=== PATIENT | female | born 1960 | race Caucasian/White ===

== ENCOUNTER 2018-10-16 12:33 | Observation (INO) | payer BC ==
[2018-10-16 14:06] LABS: ABS Basophils 0.1 10^3/ul (0-0.2); ABS Eosinophils 0.3 10^3/ul (0-0.6); ABS Lymphocytes 1.5 10^3/ul (1.0-4.8); ABS Monocytes 0.4 10^3/ul (0-0.8); ABS Neutrophils 5.1 10^3/ul (1.5-7.7); ABS Nucleated RBC 0 10^3/ul; Eosinophil % 3.4 %; Hematocrit 45 % (33-41); Hemoglobin 14.6 g/dL (12.0-16.0); Mean Corpuscular HGB Conc 33 g/dL (31-36); Mean Corpuscular Hemoglobin 28 pg (27-31); Mean Corpuscular Volume 86 fL (80-97); Mean Platelet Volume 8.7 fL (7.4-10.4); Nucleated Red Blood Cells % 0.1; Platelet Count 280 10^3/uL (150-450); Red Blood Count 5.23 10^6 /uL (3.70-4.87); Red Cell Distribution Width 15 % (10.5-15); White Blood Count 7.3 10^3/uL (3.5-10.8)
[2018-10-16 14:17] LABS: Albumin 4.2 g/dL (3.2-5.2); Albumin/Globulin Ratio 1.5 (1-3); BUN/Creatinine Ratio 21.4 (8-20); EGFR African American 104.7 (>60); EGFR Non-African American 86.6 (>60); Globulin 2.8 g/dL (2-4); Potassium 3.8 mmol/L (3.5-5.0); Total Bilirubin 0.4 mg/dL (0.2-1.0)
[2018-10-16] MEDS ORDERED: Aspirin 81 mg CHEW TAB* 81 MG TAB.CHEW PO ONE (15:10)
[2018-10-16] MEDS ORDERED: Nitroglycerin TAB 0.4 MG* 0.4 MG TAB SL ONE (15:10)
--- NOTE | 2018-10-16 15:16 | ED ---
HPI Chest Pain - HPI Summary HPI Summary: The patient is a 58 y/o F presenting to [facility] with a chief complaint of mid- sternal CP that did not radiate to the arms or jaw starting at 10:00 this morning with lasting aching and discomfort now. Her chest pain, which is currently rated 3/10, is accompanied by nausea without vomiting, diffuse abd pain, decreased appetite, headache (rated 7/10), and chills. She also reports SOB that started yesterday after taking a longer walk than usual. She denies fever, erythema of eyes, sore throat, cough, diarrhea, dysuria, hematuria, myalgia, back or shoulder pain, edema, rash, or dizziness. Hx of HTN, depression , anxiety, and gastric bypass in 2009. No hx of blood clots in FHx. - History of Current Complaint Chief Complaint: EDChestPainROMI Time Seen by Provider: 10/16/18 14:59 Hx Obtained From: Patient Onset/Duration: Started Hours Ago, Still Present Time of Onset: 10:00 Timing: Lasting Hours Initial Severity: Moderate Current Severity: Mild Pain Intensity: 3 Pain Scale Used: 0-10 Numeric Chest Pain Location: Mid Sternal Chest Pain Radiates: No Character: Dull/Aching Aggravating Factor(s): Nothing Alleviating Factor(s): Nothing Associated Signs and Symptoms: Positive: Headaches, Shortness of Breath, Chills , Nausea, Abdominal Pain - diffuse, Other: - POSITIVE: decreased appetite; NEGATIVE: diarrhea. Negative: Fever, Cough, Back Pain, Vomiting, Edema - Allergy/Home Medications Allergies/Adverse Reactions: Allergies Allergy/AdvReac Type Severity Reaction Status Date / Time nortriptyline Allergy Severe Dizziness Verified 10/16/18 12:35 NSAIDS (Non-Steroidal Allergy See Comment Verified 10/16/18 12:35 Anti-Inflamma ARTIFICIAL SWEETENER Allergy MIGRAINE Uncoded 10/16/18 12:35 PMH/Surg Hx/FS Hx/Imm Hx Endocrine/Hematology History: Reports: Hx Thyroid Disease, Hx Anemia - s/p Consuelo- en-Y Denies: Hx Diabetes Cardiovascular History: Denies: Hx Hypertension, Hx Pacemaker/ICD Respiratory History: Reports: Hx Asthma, Hx Sleep Apnea - being fitted for CPAP 04/2018 GI History: Reports: Hx Gastroesophageal Reflux Disease History: Denies: Hx Renal Disease Musculoskeletal History: Reports: Hx Arthritis, Hx Back Problems Sensory History: Denies: Hx Hearing Aid Neurological History: Reports: Hx Headaches, Hx Migraine Psychiatric History: Denies: Hx Panic Disorder - Surgical History Surgery Procedure, Year, and Place: gastric bypass 2010. BROKEN ELBOW CHILD. TONSILS Infectious Disease History: No Infectious Disease History: Denies: Traveled Outside the [place] in Last 30 Days - Family History Known Family History: Negative: Hypertension, Diabetes - Social History Alcohol Use: None Alcohol Amount: 1 Hx Substance Use: No Substance Use Type: Reports: None Hx Tobacco Use: No Smoking Status (MU): Never Smoked Tobacco Review of Systems Positive: Chills. Negative: Fever Positive: Chest Pain - mid-sternal not radiating to jaw or arm Positive: Shortness Of Breath. Negative: Cough Positive: Abdominal Pain - diffuse, Nausea, Other - decreased appetite. Negative: Vomiting, Diarrhea Negative: dysuria, hematuria Positive: Other - NEGATIVE: back or shoulder pain. Negative: Myalgia, Edema Negative: Rash Neurological: Other - NEGATIVE: dizziness Positive: Headache All Other Systems Reviewed And Are Negative: Yes Physical Exam - Summary Physical Exam Summary: Constitutional: Well-developed, Well-nourished but morbidly obese, Alert. (-) Distressed Skin: Warm, Dry HENT: Normocephalic; Atraumatic Eyes: Conjunctiva normal Neck: Musculoskeletal ROM normal neck. (-) JVD, (-) Stridor, (-) Tracheal deviation Cardio: Rhythm regular, rate normal, Heart sounds normal; Intact distal pulses; The pedal pulses are 2+ and symmetric. Radial pulses are 2+ and symmetric. (-) Murmur Pulmonary/Chest wall: Effort normal. (-) Respiratory distress, (-) Wheezes, (-) Rales Abd: Soft, (-) tenderness, (-) Distension, (-) Guarding, (-) Rebound Musculoskeletal: (-) Edema Lymph: (-) Cervical adenopathy Neuro: Alert, Oriented x3 Psych: Mood and affect Normal Triage Information Reviewed: Yes Vital Signs On Initial Exam: Initial Vitals Temp Pulse Resp BP Pulse Ox 99 F 86 18 165/100 100 10/16/18 12:35 10/16/18 12:35 10/16/18 12:35 10/16/18 12:35 10/16/18 12:35 Vital Signs Reviewed: Yes Diagnostics - Vital Signs Vital Signs Temp Pulse Resp BP Pulse Ox 10/16/18 12:35 99 F 86 18 165/100 100 - Laboratory Lab Results: Lab Results 10/16/18 10/16/18 10/16/18 Range/Units 13:50 13:50 13:50 WBC 7.3 (3.5-10.8) 10^3/uL RBC 5.23 H (3.70-4.87) 10^6 /uL Hgb 14.6 (12.0-16.0) g/dL Hct 45 H (33-41) % MCV 86 (80-97) fL MCH 28 (27-31) pg MCHC 33 (31-36) g/dL RDW 15 (10.5-15) % Plt Count 280 (150-450) 10^3/uL MPV 8.7 (7.4-10.4) fL Neut % (Auto) 70.1 % Lymph % (Auto) 20.0 % Rich % (Auto) 5.8 % Eos % (Auto) 3.4 % Baso % (Auto) 0.7 % Absolute Neuts (auto) 5.1 (1.5-7.7) 10^3/ul Absolute Lymphs (auto) 1.5 (1.0-4.8) 10^3/ul Absolute Monos (auto) 0.4 (0-0.8) 10^3/ul Absolute Eos (auto) 0.3 (0-0.6) 10^3/ul Absolute Basos (auto) 0.1 (0-0.2) 10^3/ul Absolute Nucleated RBC 0 10^3/ul Nucleated RBC % 0.1 Sodium 139 (135-145) mmol/L Potassium 3.8 (3.5-5.0) mmol/L Chloride 105 (101-111) mmol/L Carbon Dioxide 26 (22-32) mmol/L Anion Gap 8 (2-11) mmol/L BUN 15 (6-24) mg/dL Creatinine 0.70 (0.51-0.95) mg/dL Est GFR ( Amer) 104.7 (>60) Est GFR (Non-Af Amer) 86.6 (>60) BUN/Creatinine Ratio 21.4 H (8-20) Glucose 91 (70-100) mg/dL Lactic Acid 1.2 (0.5-2.0) mmol/L Calcium 9.0 (8.6-10.3) mg/dL Total Bilirubin 0.40 (0.2-1.0) mg/dL AST 22 (13-39) U/L ALT 23 (7-52) U/L Alkaline Phosphatase 70 (34-104) U/L Troponin I 0.00 (<0.04) ng/mL Total Protein 7.0 (6.4-8.9) g/dL Albumin 4.2 (3.2-5.2) g/dL Globulin 2.8 (2-4) g/dL Albumin/Globulin Ratio 1.5 (1-3) Result Diagrams: 10/16/18 13:50 10/17/18 05:36 Lab Statement: Any lab studies that have been ordered have been reviewed, and results considered in the medical decision making process. - Radiology CXR Radiology Interpretation Completed By: Radiologist Summary of Radiographic Findings: Mild RIGHT basilar alveolar opacity new compared with the prior exam is concerning for mild inflammatory infiltrate. ED physician has reviewed this report. - EKG 12:46 Cardiac Rate: NL - 74 BPM EKG Rhythm: Sinus Rhythm Summary of EKG Findings: No STEMI. Re-Evaluation - Re-Evaluation First Eval Re-Evaluation Time: 17:30 Comment: I spoke with the patient concerning lab and imaging results. We also discussed admission. Chest Pain Course/Dx - Course Course Of Treatment: The patient is a 58 y/o F with a chief complaint of mid- sternal CP that did not radiate to the arms or jaw starting at 10:00 this morning with lasting aching and discomfort now. She additionally c/o nausea without vomiting, diffuse abd pain, decreased appetite, headache, and chills. She also reports SOB with exertion. She denies fever, diarrhea, back or shoulder pain, edema, or dizziness. Hx of HTN, depression, anxiety, and gastric bypass in 2009. No hx of blood clots in FHx. Upon physical exam, the patient is morbidly obese but exam is otherwise normal. In the ED course, the patient was administered Azithromycin, NTG, Aspirin, and Ceftriaxone Sodium in Ns. Blood work reveals elevated RBC, Hct, and BUN/Creatinine ratio. First troponin is 0.0 , second troponin is 0.01. EKG is normal. CXR reveals new mild right basilar alveolar opacity. I spoke with Dr. Whatley, hospitalist, at 17:10 concerning the patient's symptoms and results thus far; he accepts the patient for admission. The patient is diagnosed with chest pain unspecified. She agrees with plan and understands the need for admission at this time. - Diagnoses Provider Diagnoses: Chest pain, unspecified - Provider Notifications Discussed Care Of Patient With: Lincoln Whatley - hospitalist Time Discussed With Above Provider: 17:10 Instructed by Provider To: Other - I consulted with Dr. Whatley who accepts the patient for admission at this time based on lab and imaging results. Discharge - Sign-Out/Discharge Documenting (check all that apply): Patient Departure - Patient will be admitted to [facility] for further care. Patient Received Moderate/Deep Sedation with Procedure: No - Discharge Plan Condition: Stable Disposition: ADMITTED TO [facility] - Billing Disposition and Condition Condition: STABLE Disposition: Admitted to [facility] - Attestation Statements Document Initiated by Emekae: Yes Documenting Scribe: Angelia Melgar Provider For Whom Mable is Documenting (Include Credential): Dr. Raymon Morton MD Scribe Attestation: IAngelia scribed for Dr. Raymon Morton MD on 10/17/18 at 1059. Scribe Documentation Reviewed: Yes Provider Attestation: The documentation as recorded by the Angelia moraes accurately reflects the service I personally performed and the decisions made by me, Dr. Raymon Morton MD Status of Scribe Document: Viewed
[2018-10-16] MEDS ORDERED: ED Azithromycn 500 mg/250 ml 500 MG/250 ML PREMIX.SET IVPB ONE (16:23)
[2018-10-16] MEDS ORDERED: cefTRIAXone(*) 1 GM in NS 0.9% 50 ML* 50 ML IVPB ONE (16:23)
[2018-10-16] MEDS ORDERED: Al Hydrox/Mg Hydrox/Simet LIQ* 30 ML UDC PO PRN (18:46)
[2018-10-16] MEDS ORDERED: NS 0.9% 1000 ML** 1,000 ML IV SCH (19:00)
[2018-10-16] MEDS ORDERED: Melatonin 3 MG TAB PO PRN (19:08)
[2018-10-16 19:48] LABS: TSH (Thyroid Stimulating Horm) 1.3 mcIU/mL (0.34-5.60)
[2018-10-16] MEDS: Heparin VIAL(*) 5000 UNITS/ML VIAL (FIVE THOUSAND) SUBCUT SCH (21:19)
[2018-10-16] MEDS: Acetaminophen TAB* 325 MG PO PRN (21:19)
--- NOTE | 2018-10-16 21:46 | HP ---
Amended report to enter cosigning physician. CC: Dr. Tonia Frankel* HISTORY AND PHYSICAL: DATE OF ADMISSION: 10/16/18 PROVIDER: Lisa Casas NP. ATTENDING PHYSICIAN: Dr. Marc Preston* (dictated by Lisa Casas NP). PRIMARY CARE PROVIDER: Tonia Frankel MD. CHIEF COMPLAINT: Chest pain. HISTORY OF PRESENT ILLNESS: Ms. Meade is a 58-year-old female with a past medical history significant for GERD, migraine, sleep apnea, hypothyroid, social anxiety, depression, and obesity who presented to the emergency room with complaint of midsternal chest pain. Denied any radiation to the back, neck , jaw, or shoulders. Reports that it was associated with nausea. The patient reports she was unable to get comfortable due to the pain. The patient also reports that yesterday she took her dogs for a walk farther than she normally walks them and became very short of breath and fatigued after the walk. The patient reports no exacerbation of the chest pain with deep breath, movement, or palpation. She denies any fever, chills, unintended weight loss. Denies any cough, hemoptysis, or shortness of breath. She does report nausea. Denies any diarrhea, abdominal pain, gross hematuria, dysuria, focal weakness, or sensory loss. Denies any dysphagia. She does have chronic joint and muscle aches. Denies any rashes, lesions, open sores. She does report she is slightly anxious. While in the emergency room, the patient had routine lab work drawn. Her troponins have been negative in the emergency room. She was given aspirin 324 mg p.o. Due to her chest pain, we were asked to see and evaluate her for admission. She will be admitted under observation for chest pain, rule out acute coronary syndrome. PAST MEDICAL HISTORY: 1. GERD. 2. Migraines. 3. Sleep apnea. 4. Hypothyroid. 5. Social anxiety. 6. Depression. 7. Obesity. PAST SURGICAL HISTORY: 1. Consuelo-en-Y gastric bypass. 2. Tonsillectomy. 3. Elbow surgery. 4. Hernia repair, umbilical. HOME MEDICATIONS: 1. Tizanidine 4 mg as needed. 2. Rizatriptan 5 mg p.o. once as needed for migraine. 3. Magnesium oxide 1000 mg p.o. daily. 4. Prevacid 30 mg p.o. daily. 5. Ferrous sulfate 325 mg p.o. daily. 6. Vitamin D 5000 units p.o. daily. 7. Calcium 500 mg p.o. daily. 8. Acetaminophen 1000 mg p.o. q.6 hours as needed for pain. ALLERGIES: To NORTRIPTYLINE, NSAIDs is a sensitivity due to her gastric bypass , and artificial sweeteners causes migraines. FAMILY HISTORY: Father with a history of hypertension, alive in his 80s. Mother with a history of diabetes, alive in her 80s. Grandmother with a history of uterine cancer. SOCIAL HISTORY: No tobacco. Occasional alcohol use. Denies any illicit drug use. She is and she lives with her . Surrogate decision maker in the event she is unable to make her own decisions is her . She is a full code. REVIEW OF SYSTEMS: All pertinent positives were mentioned in the HPI. All others were negative. A review of 14 systems was completed. PHYSICAL EXAMINATION GENERAL: At this time, Ms. Meade is a 58-year-old female. She is resting on the stretcher in the emergency room with sunglasses on due to current migraine. She is alert and oriented x3. She does not appear to be in any acute distress. HEENT: Head is atraumatic, normocephalic. Eyes: EOMs are intact. Sclerae anicteric and not pale. Oral mucosa appear to be moist. NECK: Supple. LUNGS: Clear to auscultation bilaterally. No wheezes, rales, or rhonchi. CARDIAC: S1, S2. Regular rate and rhythm. No murmurs, rubs, or gallops. ABDOMEN: Obese, soft, nontender. Bowel sounds are present x4. MUSCULOSKELETAL: She is able to move all extremities with 5/5 strength. There is no clubbing or cyanosis. NEUROLOGIC: She is awake, alert, oriented x3. Speech is clear. Thought process is intact. There are no gross focal deficits. PSYCH: She is tearful during conversation. Reports that she has attempted to control her anxiety. SKIN: Intact. There are no rashes or open sores. LABORATORY DATA AND DIAGNOSTIC STUDIES: WBCs are 7.3, RBCs 5.23, hemoglobin 14.6, hematocrit was 45, platelet count was 280. Sodium 139, potassium 3.8, chloride 105, carbon dioxide was 26, anion gap was 8, BUN was 15, creatinine 0.70, glucose was 91, lactic acid 1.2, calcium 9.0. ASTs were 22, ALTs were 23 , alkaline phosphatase was 70. Troponin was 0.00 and 0.01. She had a chest x-ray, which showed mild right basilar alveolar opacity, new when compared to a prior exam, concerning for mild inflammatory infiltrate. She had electrocardiogram, which showed sinus rhythm at a rate of [address] No [address]- or T-wave changes. ASSESSMENT AND PLAN: Ms. Meade is a 58-year-old female with a past medical history significant for gastroesophageal reflux disease, migraine, sleep apnea, hypothyroid, social anxiety, depression, and obesity who presented to the emergency room with complaint of midsternal chest pressure with associated nausea. Due to this, we were asked to evaluate her for admission. She will be admitted under observation for: 1. Chest pain. We will continue to trend her troponins x3. We will do a nuclear stress test, exercise, tomorrow. She will be monitored on telemetry overnight and we will get a lipid profile in the a.m. The patient does have a BROOK score of 1. The patient did receive 324 of aspirin in the emergency room. I will continue her on aspirin 81 mg p.o. daily. A chest x-ray is concerning for basilar opacity. The patient does not have any shortness of breath, cough, congestion, or coughing up any sputum. At this time, I will hold off on further treatment for possible pneumonia as the patient is afebrile as well and maintaining O2 saturations on room air of 95% to 98% and no clinical symptoms concerning for pneumonia at this time. 2. Gastroesophageal reflux disease. We will continue on Prevacid as previously prescribed. 3. Migraines. I am going to hold rizatriptan as the patient did have chest pain. I will continue with Tylenol Extra Strength and ice packs to assist in comfort with her headaches. She also can continue her magnesium oxide daily to help control her headaches. 4. Sleep apnea. The patient does wear CPAP at night. We will order hospital CPAPs for her. 5. Depression and social anxiety. The patient is not currently treated with any medication. States that she was recently taken off her phentermine, which she reports helped control her social anxiety. 6. FEN. The patient can have a heart-healthy, no-caffeine diet. 7. Code status. She is a full code. 8. DVT prophylaxis. I will place her on heparin subcu. 9. Disposition. The patient will be placed on [address] [place] [address] telemetry as observation. TIME SPENT: Time spent on this admission was 60 minutes, greater than half the time was spent at the bedtime reviewing events leading thus far to her hospitalization, performing my physical exam, and implementing my plan of care. I have discussed this with my attending, Dr. Raghavendra Preston; he is in agreement with my plan. LISA CASAS, NURSING INFORMATICS CLINICAL ANALYST [id number]/[facility] #: [id number] ABY
[2018-10-16] MEDS ORDERED: NS 0.9% 1000 ML/HR X 1 BAG (TOTAL 1000 ML) IV ONE (23:45)
[2018-10-17] MEDS: Heparin VIAL(*) 5000 UNITS/ML VIAL (FIVE THOUSAND) SUBCUT SCH ×3 (05:36→20:51)
[2018-10-17 06:28] LABS: BUN/Creatinine Ratio 14.8 (8-20); Calcium 8.2 mg/dL (8.6-10.3); EGFR African American 122.8 (>60); EGFR Non-African American 101.5 (>60); HDL Cholesterol 58.1 mg/dL; Potassium 3.8 mmol/L (3.5-5.0)
[2018-10-17] MEDS: Magnesium Oxide TAB* 400 MG PO SCH (08:55)
[2018-10-17] MEDS: Aspirin EC TAB* 81 MG TAB.EC PO SCH (08:56)
[2018-10-17] MEDS: Cholecalciferol TAB* 1000 UNITS PO SCH (08:56)
[2018-10-17] MEDS: Ferrous Sulfate TAB* 325 MG PO SCH (08:56)
[2018-10-17] MEDS: Acetaminophen TAB* 325 MG PO PRN (08:56)
[2018-10-17] MEDS: Pantoprazole TAB * 40 MG TAB PO SCH (08:57)
--- NOTE | 2018-10-17 09:42 | PN ---
Subjective Date of Service: 10/17/18 Interval History: Patient describes mild chest pain overnight, no changes on telemetry. Patient has history of chronic migraines and currently has migraine. Denies visual changes/nausea. Denies chest pain at time of visit, SOB, cough, fever/chills. Objective Active Medications: Acetaminophen (Tylenol Tab*) 975 mg PO Q8H PRN PRN Reason: FEVER/PAIN Last Admin: 10/17/18 08:56 Dose: 975 mg Al Hydrox/Mg Hydrox/Simethicone (Maalox Plus*) 30 ml PO Q6H PRN PRN Reason: INDIGESTION Aspirin (Aspirin Ec Tab*) 81 mg PO DAILY [facility] Last Admin: 10/17/18 08:56 Dose: 81 mg Cholecalciferol (Vitamin D Tab*) 5,000 units PO DAILY [facility] Last Admin: 10/17/18 08:56 Dose: 5,000 units Ferrous Sulfate (Ferrous Sulfate Tab*) 325 mg PO DAILY [facility] Last Admin: 10/17/18 08:56 Dose: 325 mg Heparin Sodium (Porcine) (Heparin Vial(*)) 5,000 units SUBCUT Q8HR [facility] Last Admin: 10/17/18 05:36 Dose: 5,000 units Magnesium Oxide (Magox 400 Tab*) 1,000 mg PO DAILY [facility] Last Admin: 10/17/18 08:55 Dose: 1,000 mg Melatonin (Melatonin) 3 mg PO BEDTIME PRN PRN Reason: SLEEP Last Admin: 10/16/18 21:19 Dose: 3 mg Pantoprazole Sodium (Protonix Tab*) 40 mg PO DAILY [facility] Last Admin: 10/17/18 08:57 Dose: 40 mg Vital Signs - 8 hr 10/17/18 10/17/18 10/17/18 03:15 07:39 07:45 Temperature 97.6 F 96.5 F Pulse Rate 91 59 Respiratory 16 16 20 Rate Blood Pressure 140/86 145/76 (mmHg) O2 Sat by Pulse 100 96 Oximetry Oxygen Devices in Use Now: None Appearance: Patient laying in hospital bed with ice pack to head, appearing in NAD; at bedside Eyes: No Scleral Icterus, PERRLA Ears/Nose/Mouth/Throat: Mucous Membranes Moist Neck: NL Appearance and Movements; NL JVP, Trachea Midline Respiratory: Symmetrical Chest Expansion and Respiratory Effort, Clear to Auscultation Cardiovascular: NL Sounds; No Murmurs; No JVD, RRR Abdominal: - - abdomen obese, soft, nontender, nondistended Extremities: - - pretibial +1 pitting edema bilaterally; no clubbing; neg calf tenderness Skin: No Rash or Ulcers, - - skin is warm, dry, intact Neurological: Alert and Oriented x 3, NL Muscle Strength and Tone Result Diagrams: 10/16/18 13:50 10/17/18 05:36 Additional Lab and Data: Lab Results 10/16/18 10/16/18 10/16/18 Range/Units 13:50 13:50 13:50 WBC 7.3 (3.5-10.8) 10^3/uL RBC 5.23 H (3.70-4.87) 10^6 /uL Hgb 14.6 (12.0-16.0) g/dL Hct 45 H (33-41) % MCV 86 (80-97) fL MCH 28 (27-31) pg MCHC 33 (31-36) g/dL RDW 15 (10.5-15) % Plt Count 280 (150-450) 10^3/uL MPV 8.7 (7.4-10.4) fL Neut % (Auto) 70.1 % Lymph % (Auto) 20.0 % Beckham % (Auto) 5.8 % Eos % (Auto) 3.4 % Baso % (Auto) 0.7 % Absolute Neuts (auto) 5.1 (1.5-7.7) 10^3/ul Absolute Lymphs (auto) 1.5 (1.0-4.8) 10^3/ul Absolute Monos (auto) 0.4 (0-0.8) 10^3/ul Absolute Eos (auto) 0.3 (0-0.6) 10^3/ul Absolute Basos (auto) 0.1 (0-0.2) 10^3/ul Absolute Nucleated RBC 0 10^3/ul Nucleated RBC % 0.1 Sodium 139 (135-145) mmol/L Potassium 3.8 (3.5-5.0) mmol/L Chloride 105 (101-111) mmol/L Carbon Dioxide 26 (22-32) mmol/L Anion Gap 8 (2-11) mmol/L BUN 15 (6-24) mg/dL Creatinine 0.70 (0.51-0.95) mg/dL Est GFR ( Amer) 104.7 (>60) Est GFR (Non-Af Amer) 86.6 (>60) BUN/Creatinine Ratio 21.4 H (8-20) Glucose 91 (70-100) mg/dL Lactic Acid 1.2 (0.5-2.0) mmol/L Calcium 9.0 (8.6-10.3) mg/dL Total Bilirubin 0.40 (0.2-1.0) mg/dL AST 22 (13-39) U/L ALT 23 (7-52) U/L Alkaline Phosphatase 70 (34-104) U/L Troponin I 0.00 (<0.04) ng/mL Total Protein 7.0 (6.4-8.9) g/dL Albumin 4.2 (3.2-5.2) g/dL Globulin 2.8 (2-4) g/dL Albumin/Globulin Ratio 1.5 (1-3) Assess/Plan/Problems-Billing Assessment: - Patient Problems (1) Chest pain Code(s): R07.9 - CHEST PAIN, UNSPECIFIED SNOMED Code(s): 85044200 Comment: -pt asymptomatic at time of visit but did have additional episode of chest pain earlier this morning -telemetry without changes; troponins neg x 3 -awaiting stress test today -LDL/HDL/cholesterol wnl, triglycerides elevated to 172, ASCVD calculated - 2.4 % risk of CV event in 10 years, no statin needed at this time (2) Abnormal chest x-ray Code(s): R93.89 - ABNORMAL FINDINGS ON DX IMAGING OF OTH BODY STRUCTURES SNOMED Code(s): 028654170 Comment: -CXR on admission with mild right basilar alveolar opacity -patient has not had tachycardia, tachypnea, or fever since admission; O2 sats wnl -pt denies diffuculty breathing, cough, fever/chills -lung exam has good air flow and no wheezes/rhales/rhonchi -pt received single dose of ceftriaxone and azithromycin in ED, no clinical suspicion of pneumonia at this time so will not continue -follow up after discharge will be recommended (3) Migraine Code(s): G43.909 - MIGRAINE, UNSP, NOT INTRACTABLE, WITHOUT STATUS MIGRAINOSUS SNOMED Code(s): 36756024 Comment: -patient has daily, chronic migraines -holdling home rizatriptan in setting of chest pain, continuing home mag oxide (4) GERD (gastroesophageal reflux disease) Code(s): K21.9 - GASTRO-ESOPHAGEAL REFLUX DISEASE WITHOUT ESOPHAGITIS SNOMED Code(s): 945120424 Comment: -continue home prevacid -consider as possible cause for chest pain if stress test wnl (5) LINDA (obstructive sleep apnea) Code(s): G47.33 - OBSTRUCTIVE SLEEP APNEA (ADULT) (PEDIATRIC) SNOMED Code(s): 69526449 Comment: -uses CPAP at night at home, continue (6) Full code status Code(s): Z78.9 - OTHER SPECIFIED HEALTH STATUS SNOMED Code(s): 171227262 (7) DVT prophylaxis Code(s): XEK7325 - SNOMED Code(s): 818166756 Comment: -continue subQ heparin TID
[2018-10-17] MEDS ORDERED: PROCHLORPERAZINE INJ 5 MG/ML 2 ML VIAL IV PRN (17:12)
[2018-10-17] MEDS ORDERED: diPHENhydraMINE PO* 50 MG PO PRN (17:13)
[2018-10-17] MEDS ORDERED: Prochlorperazine TAB* 10 MG PO PRN (17:15)
[2018-10-18] MEDS: Heparin VIAL(*) 5000 UNITS/ML VIAL (FIVE THOUSAND) SUBCUT SCH ×2 (05:58→12:58)
[2018-10-18 06:21] LABS: ABS Basophils 0 10^3/ul (0-0.2); ABS Eosinophils 0.3 10^3/ul (0-0.6); ABS Monocytes 0.6 10^3/ul (0-0.8); ABS Neutrophils 3.5 10^3/ul (1.5-7.7); ABS Nucleated RBC 0 10^3/ul; Eosinophil % 4.4 %; Hematocrit 42 % (33-41); Hemoglobin 13.8 g/dL (12.0-16.0); Lymphocyte % 31.3 %; Mean Corpuscular HGB Conc 33 g/dL (31-36); Mean Corpuscular Hemoglobin 28 pg (27-31); Mean Corpuscular Volume 85 fL (80-97); Mean Platelet Volume 8.9 fL (7.4-10.4); Nucleated Red Blood Cells % 0.1; Platelet Count 230 10^3/uL (150-450); Red Blood Count 4.94 10^6 /uL (3.70-4.87); Red Cell Distribution Width 15 % (10.5-15); White Blood Count 6.4 10^3/uL (3.5-10.8)
[2018-10-18 06:34] LABS: BUN/Creatinine Ratio 15.5 (8-20); Calcium 8.7 mg/dL (8.6-10.3); EGFR Non-African American 85.2 (>60); Potassium 3.7 mmol/L (3.5-5.0)
[2018-10-18] MEDS ORDERED: hydrALAZINE IV* 20 MG/ML VIAL IV SLOW PU PRN (07:12)
[2018-10-18] MEDS: Cholecalciferol TAB* 1000 UNITS PO SCH (08:36)
[2018-10-18] MEDS: Magnesium Oxide TAB* 400 MG PO SCH (08:36)
[2018-10-18] MEDS: Ferrous Sulfate TAB* 325 MG PO SCH (08:37)
[2018-10-18] MEDS: Aspirin EC TAB* 81 MG TAB.EC PO SCH (08:37)
[2018-10-18] MEDS: Pantoprazole TAB * 40 MG TAB PO SCH (08:37)
--- NOTE | 2018-10-18 09:16 | PN ---
Subjective Date of Service: 10/18/18 Interval History: Patient is seen today after completion of resting nuclear medicine test. She mentions that about 30 min after nuclear medicine staff injected medication, she began feeling "chest heaviness." It has not resolved at time of visit and she has associated nausea. Her chronic, daily migraine is improved this morning. She otherwise denies SOB, palpitations, cough, fever/chills, abd pain, vomiting. Objective Active Medications: Acetaminophen (Tylenol Tab*) 975 mg PO Q8H PRN PRN Reason: FEVER/PAIN Last Admin: 10/17/18 08:56 Dose: 975 mg Al Hydrox/Mg Hydrox/Simethicone (Maalox Plus*) 30 ml PO Q6H PRN PRN Reason: INDIGESTION Aspirin (Aspirin Ec Tab*) 81 mg PO DAILY [facility] Last Admin: 10/18/18 08:37 Dose: 81 mg Cholecalciferol (Vitamin D Tab*) 5,000 units PO DAILY [facility] Last Admin: 10/18/18 08:36 Dose: 5,000 units Diphenhydramine HCl (Benadryl Po*) 50 mg PO Q6H PRN PRN Reason: Migraine Ferrous Sulfate (Ferrous Sulfate Tab*) 325 mg PO DAILY [facility] Last Admin: 10/18/18 08:37 Dose: 325 mg Heparin Sodium (Porcine) (Heparin Vial(*)) 5,000 units SUBCUT Q8HR [facility] Last Admin: 10/18/18 05:58 Dose: 5,000 units Hydralazine HCl (Apresoline Iv*) 5 mg IV SLOW PU Q6H PRN PRN Reason: SYSTOLIC BP GREATER THAN: Magnesium Oxide (Magox 400 Tab*) 1,000 mg PO DAILY [facility] Last Admin: 10/18/18 08:36 Dose: 1,000 mg Melatonin (Melatonin) 3 mg PO BEDTIME PRN PRN Reason: SLEEP Last Admin: 10/16/18 21:19 Dose: 3 mg Pantoprazole Sodium (Protonix Tab*) 40 mg PO DAILY [facility] Last Admin: 10/18/18 08:37 Dose: 40 mg Prochlorperazine (Compazine Tab*) 10 mg PO Q6HR PRN PRN Reason: MIGRAINE HEADACHE Last Admin: 10/18/18 08:51 Dose: 10 mg Vital Signs - 8 hr 10/18/18 10/18/18 03:57 07:58 Temperature 97.9 F 97.6 F Pulse Rate 61 66 Respiratory 14 20 Rate Blood Pressure 143/77 149/89 (mmHg) O2 Sat by Pulse 100 99 Oximetry Oxygen Devices in Use Now: Nasal Cannula Appearance: Obese female sitting upright in hospital bed comfortably, appearing in NAD Eyes: No Scleral Icterus, PERRLA Ears/Nose/Mouth/Throat: Mucous Membranes Moist Neck: NL Appearance and Movements; NL JVP Respiratory: Symmetrical Chest Expansion and Respiratory Effort, Clear to Auscultation Cardiovascular: NL Sounds; No Murmurs; No JVD, RRR Abdominal: - - abdomen obese, soft, nontender, nondistended Extremities: No Edema, No Clubbing, Cyanosis Skin: No Rash or Ulcers, - - skin is warm, dry, intact Neurological: Alert and Oriented x 3, NL Muscle Strength and Tone Result Diagrams: 10/18/18 05:59 10/18/18 05:59 Additional Lab and Data: Lab Results 10/16/18 10/16/18 10/16/18 Range/Units 13:50 13:50 13:50 WBC 7.3 (3.5-10.8) 10^3/uL RBC 5.23 H (3.70-4.87) 10^6 /uL Hgb 14.6 (12.0-16.0) g/dL Hct 45 H (33-41) % MCV 86 (80-97) fL MCH 28 (27-31) pg MCHC 33 (31-36) g/dL RDW 15 (10.5-15) % Plt Count 280 (150-450) 10^3/uL MPV 8.7 (7.4-10.4) fL Neut % (Auto) 70.1 % Lymph % (Auto) 20.0 % Divide % (Auto) 5.8 % Eos % (Auto) 3.4 % Baso % (Auto) 0.7 % Absolute Neuts (auto) 5.1 (1.5-7.7) 10^3/ul Absolute Lymphs (auto) 1.5 (1.0-4.8) 10^3/ul Absolute Monos (auto) 0.4 (0-0.8) 10^3/ul Absolute Eos (auto) 0.3 (0-0.6) 10^3/ul Absolute Basos (auto) 0.1 (0-0.2) 10^3/ul Absolute Nucleated RBC 0 10^3/ul Nucleated RBC % 0.1 Sodium 139 (135-145) mmol/L Potassium 3.8 (3.5-5.0) mmol/L Chloride 105 (101-111) mmol/L Carbon Dioxide 26 (22-32) mmol/L Anion Gap 8 (2-11) mmol/L BUN 15 (6-24) mg/dL Creatinine 0.70 (0.51-0.95) mg/dL Est GFR ( Amer) 104.7 (>60) Est GFR (Non-Af Amer) 86.6 (>60) BUN/Creatinine Ratio 21.4 H (8-20) Glucose 91 (70-100) mg/dL Lactic Acid 1.2 (0.5-2.0) mmol/L Calcium 9.0 (8.6-10.3) mg/dL Total Bilirubin 0.40 (0.2-1.0) mg/dL AST 22 (13-39) U/L ALT 23 (7-52) U/L Alkaline Phosphatase 70 (34-104) U/L Troponin I 0.00 (<0.04) ng/mL Total Protein 7.0 (6.4-8.9) g/dL Albumin 4.2 (3.2-5.2) g/dL Globulin 2.8 (2-4) g/dL Albumin/Globulin Ratio 1.5 (1-3) Assess/Plan/Problems-Billing Assessment: 58 yo female with PMHx obesity, GERD, migraines, hypothyroidism, anxiety/ depression presents to the ED with chest pain. - Patient Problems (1) Chest pain Code(s): R07.9 - CHEST PAIN, UNSPECIFIED SNOMED Code(s): 41887166 Comment: -pt with chest discomfort at time of visit, no diaphoresis, SOB, radiation of pain, no changes on telemetry -resting component of stress test completed today, awaiting results -troponins neg x 3 -LDL/HDL/cholesterol wnl, triglycerides elevated to 172, ASCVD calculated - 2.4 % risk of CV event in 10 years, no statin needed at this time (2) Hypertension Status: Acute Code(s): I10 - ESSENTIAL (PRIMARY) HYPERTENSION SNOMED Code(s) : 94893122 Comment: -SBP has been >140 on average -prn hydralazine for SBP>150 ordered -patient does not have PMHx of hypertension -advise f/u with PCP at discharge (3) Abnormal chest x-ray Code(s): R93.89 - ABNORMAL FINDINGS ON DX IMAGING OF OTH BODY STRUCTURES SNOMED Code(s): 299890211 Comment: -pt continues to be asymptomatic and with benign lung exam -CXR on admission with mild right basilar alveolar opacity -follow up after discharge will be recommended (4) Migraine Code(s): G43.909 - MIGRAINE, UNSP, NOT INTRACTABLE, WITHOUT STATUS MIGRAINOSUS SNOMED Code(s): 90561490 Comment: -patient has daily, chronic migraines -holdling home rizatriptan in setting of chest pain, continuing home mag oxide -prn compazine added (5) GERD (gastroesophageal reflux disease) Code(s): K21.9 - GASTRO-ESOPHAGEAL REFLUX DISEASE WITHOUT ESOPHAGITIS SNOMED Code(s): 002611406 Comment: -continue home prevacid -consider as possible cause for chest pain if stress test wnl (6) LINDA (obstructive sleep apnea) Code(s): G47.33 - OBSTRUCTIVE SLEEP APNEA (ADULT) (PEDIATRIC) SNOMED Code(s): 69044613 Comment: -uses CPAP at night at home, continue (7) Full code status Code(s): Z78.9 - OTHER SPECIFIED HEALTH STATUS SNOMED Code(s): 408149060 (8) DVT prophylaxis Code(s): QJC9888 - SNOMED Code(s): 794994995 Comment: -continue subQ heparin TID
[2018-10-18 11:51] VITALS: BP 136/80
--- NOTE | 2018-10-18 16:05 | CONS ---
CC: Dr. Frankel, [facility] * CARDIOLOGY CONSULTATION: DATE OF CONSULT: 10/18/18 INDICATION FOR CONSULT: Chest pain. HISTORY OF PRESENT ILLNESS: The patient is a 58-year-old female with a history of obesity, history of gastric surgery, migraine headaches, gastroesophageal reflux disease, who was admitted to the hospital with chest pain. The patient states she came to the hospital yesterday with an episode of chest pain. It was a midsternal chest discomfort. It did not radiate anywhere, did not radiate to her jaw or her back or her shoulders. It lasted for about 30 minutes or so. The patient decided to come to the emergency room because this was a discomfort in her chest that she never had before. When she got to the emergency room, her discomfort had completely resolved. Her initial EKG and troponin levels were unremarkable. The patient was admitted to the hospital. The patient underwent a chemical nuclear stress test today, which was interpreted by Radiology as having an old anterior wall myocardial infarction and was characterized as intermediate risk study. I personally reviewed the images. I think the images show normal perfusion throughout the myocardium. No evidence of infarct. No evidence of ischemia. She had normal LV function. Her ejection fraction was calculated at 55%. PAST MEDICAL HISTORY: Significant for gastroesophageal reflux disease, migraine headache, sleep apnea, depression, anxiety. PAST SURGICAL HISTORY: Gastric bypass, elbow surgery, umbilical hernia surgery. OUTPATIENT MEDICATIONS: 1. Magnesium oxide 1000 mg a day. 2. Prevacid 300 mg a day. 3. Iron tablets. 4. Vitamin D. 5. Calcium. 6. Two medications for her migraine headaches. ALLERGIES: To NORTRIPTYLINE and NONSTEROIDALS. FAMILY HISTORY: Father had a history of hypertension. Mother had a history of diabetes. Mother is alive in her 80s. SOCIAL HISTORY: She denies tobacco or alcohol use. She is . She lives with her . REVIEW OF SYSTEMS: Negative for fevers and chills. Negative for changes in bowel or bladder habits. Negative for changes in weight. Other 12-point review is unremarkable. PHYSICAL EXAM: Height is 5 feet 8 inches, weight is 314 pounds, temperature is 97.6, heart rate is 66, blood pressure 149/89, respiratory rate is 20, oxygen saturation 99% on room air. Sclerae anicteric. Oropharynx is pink without erythema. Carotids are 2+ without bruits. JVD is normal. Thyroid is normal. Cardiac Exam: S1, S2 without any murmurs, rubs, or gallops. PMI is normal. Lungs are clear to auscultation. There is no dullness to percussion. Abdomen is obese, soft, nontender, nondistended with normoactive bowel sounds. Extremities show no edema. She has 2+ pulses throughout. The patient is awake , alert, and oriented. She moves all 4 extremities equally. DIAGNOSTIC STUDIES/LAB DATA: CBC within normal limits. Chemistry is within normal limits. Troponins are negative x3. TSH 1.3. EKG shows normal sinus rhythm with normal axis and intervals. Again, her nuclear images showed normal perfusion throughout the myocardium and normal LV function. IMPRESSION: This is a 58-year-old woman who is admitted to the hospital with chest pain. She ruled out for a myocardial infarction. Her stress test is unremarkable. PLAN: My recommendation is the patient will be discharged home. I do not think any medication changes are necessary. I do not think any other cardiac testing is necessary. The patient will continue to follow up with her primary care physician. [id number]/[facility] #: [id number] ABY
--- NOTE | 2018-10-19 01:40 | DS ---
CC: Tonia Frankel MD * DISCHARGE SUMMARY: DATE OF ADMISSION: 10/16/18 DATE OF DISCHARGE: 10/18/18 PROVIDER: CHERRY Lam ATTENDING PHYSICIAN: Dr. Gloria Walker * (dictated by CHERRY Lam) PRIMARY CARE PROVIDER: Tonia Frankel MD PRIMARY DIAGNOSIS: Chest pain, non-cardiac. SECONDARY DIAGNOSES: 1. Gastroesophageal reflux disease. 2. Migraine. 3. Obstructive sleep apnea. 4. Hypothyroidism. 5. Social anxiety. 6. Depression. 7. Obesity. STUDIES WHILE IN THE HOSPITAL: EKG on 10/16/18: Normal sinus rhythm, 74 beats per minute. Normal axis. Normal R progression. No ST elevations or ST depressions. No T-wave inversions. Chest x-ray on 10/16/18: "Mild right basilar alveolar opacity, new compared to the prior exam. It is concerning for mild inflammatory infiltrate." Nuclear medicine stress test on 10/18/18, impression: "Small to moderate fixed defect in the anterior wall. Normal ejection fraction." Assessment: "Intermediate risk." Significant lab data: Triglycerides 142, cholesterol 178, LDL 86, HDL 58.1. DISCHARGE MEDICATIONS: No new medications. Continued Home Medicines: 1. Zanaflex 4 mg p.o. at bedtime p.r.n. 2. Rizatriptan 5 mg p.o. once p.r.n. 3. Magnesium oxide 1000 mg p.o. daily. 4. Prevacid 30 mg p.o. daily. 5. Ferrous sulfate 325 mg p.o. daily. 6. Cholecalciferol 5000 units p.o. daily. 7. Calcium carbonate 500 mg p.o. daily. 8. Acetaminophen 1000 mg p.o. q.6 p.r.n. HISTORY OF PRESENT ILLNESS/HOSPITAL COURSE: The patient is a 58-year-old white female with past medical history significant for GERD, social anxiety, migraines and hypothyroidism, who presented to the emergency department with complaint of midsternal chest pain. She was given aspirin 324 in the emergency room and aspirin 81 mg p.o. was continued for the additional days inpatient. In the emergency department, her EKG was without ischemic changes and her stress test was negative per Dr. Lanza. Although Radiology read the stress test as having a fixed defect and read the scan to be intermediate risk, Dr. Lanza does not believe this to be the case and endorses that her stress test was normal and does not recommend any additional cardiac testing. Please see his consult note from the day of discharge. The patient's troponins were negative x3. Because her stress test was negative, a cardiac etiology to her chest pain has been ruled out. It is possible that the cause of her chest pain is related to GERD or anxiety, as the patient does have history of both of these conditions. On admission, the patient had chest x-ray which demonstrated a mild right basilar alveolar opacity. She did not have any correlating clinical symptoms of pneumonia at her admission nor throughout her hospitalization. She did not have leukocytosis, cough, fever, chills, tachycardia or tachypnea. Her lungs were clear throughout her hospitalization. Additionally, the patient was noted to be hypertensive to systolic BP above 140s on multiple occasions throughout her stay. She does not have history of hypertension nor does she take antihypertensive medications. P.r.n. hydralazine was ordered for systolic blood pressure over 150 and this was not administered during her stay. For her chronic conditions, the patient's rizatriptan was held due to her complaint of chest pain, as rizatriptan is contraindicated in coronary artery disease and this was not ruled out until the end of her stay. For treatment of her migraines during her stay, she was given Tylenol Extra Strength, Compazine and ice packs. For her treatment of her GERD, she was continued on her PPI. For treatment of her obstructive sleep apnea, she was continued on CPAP at night. For review of systems and physical exam for the day of discharge, please see progress note from day of discharge on 10/18/18. DISCHARGE PLAN: Diet: Resume regular diet. Activity: Resume regular activity as tolerated. The etiology of patient's chest pain is not cardiac as demonstrated by her normal stress test. It was discussed with the patient that the cause of her chest pain may be related to GERD or anxiety. The patient does not currently take medication for anxiety and it was recommended that she further discuss this with her PCP. She is to follow up with her PCP within 1 week regarding this hospitalization. It is recommended for her blood pressure to be evaluated at this time and to consider alternative treatments to prevacid for her GERD. It is recommended that the patient have a followup chest x-ray in 2 to 3 weeks, as the patient had opacity on her chest x-ray at admission. It was discussed with the patient that she return to the hospital if she does experience chest pain that does not improve, especially if associated with shortness of breath. As for treatment of her GERD, she is to continue her home Prevacid. As for treatment of her migraine, she is to continue her home rizatriptan and magnesium oxide. As for sleep apnea, she is to continue her home CPAP at night. CONDITION ON DISCHARGE: Stable. TIME SPENT: Approximately 50 minutes was spent on the discharge of this patient ; approximately half of this time was spent at bedside. CHERRY LAM [id number]/[facility] #: [id number] MTDD
== END 2018-10-18 16:00 | disposition home or self-care (01) ==
LOC: ED 12:33 → MEDTELE 18:46
PROVIDERS: ADMIT Internal Medicine; ATTEND Internal Medicine
DX: R07.9 Chest pain, unspecified (principal); K21.9 Gastro-esophageal reflux disease without esophagitis; G43.909 Migraine, unspecified, not intractable, without status migrainosus; G47.33 Obstructive sleep apnea (adult) (pediatric); R06.02 Shortness of breath; R10.9 Unspecified abdominal pain; F32.9 Major depressive disorder, single episode, unspecified; E66.9 Obesity, unspecified; I10 Essential (primary) hypertension; Z98.84 Bariatric surgery status; E03.9 Hypothyroidism, unspecified; F40.10 Social phobia, unspecified; Z79.82 Long term (current) use of aspirin; R93.89 Abnormal findings on diagnostic imaging of other specified body structures
CPT/HCPCS: 36415; 71045; 78452; 80048; 80053; 80061; 83605; 83735; 84443; 84484; 85025; 93005; 93017; 94660; 96361; 96372; 96374; 96375; 99284; A9270-GY; A9502; G0378; J1644; Q0164

== ENCOUNTER 2019-12-17 12:03 | Observation (INO) ==
[2019-12-17 13:10] LABS: ABS Basophils 0.1 10^3/ul (0-0.2); ABS Eosinophils 0.2 10^3/ul (0-0.6); ABS Lymphocytes 1.1 10^3/ul (1.0-4.8); ABS Monocytes 0.6 10^3/ul (0-0.8); Hematocrit 42 % (35-47); Hemoglobin 14.2 g/dL (12.0-16.0); Lymphocyte % 13.3 %; Mean Corpuscular HGB Conc 34 g/dL (31-36); Mean Corpuscular Hemoglobin 29 pg (27-31); Mean Corpuscular Volume 87 fL (80-97); Mean Platelet Volume 8.4 fL (7.4-10.4); Platelet Count 268 10^3/uL (150-450); Red Blood Count 4.83 10^6 /uL (3.70-4.87); Red Cell Distribution Width 14 % (10-15); White Blood Count 8.6 10^3/uL (3.5-10.8)
[2019-12-17 13:27] LABS: Albumin 3.9 g/dL (3.2-5.2); Albumin/Globulin Ratio 1.4 (1-3); Calcium 8.7 mg/dL (8.6-10.3); EGFR African American 89.5 (>60); EGFR Non-African American 73.9 (>60); Globulin 2.8 g/dL (2-4); Potassium 3.5 mmol/L (3.5-5.0); Total Bilirubin 0.4 mg/dL (0.2-1.0); Total Protein 6.7 g/dL (6.4-8.9)
[2019-12-17] MEDS ORDERED: Iodixanol (CONTRAST) 320 MG/ML 100 ML SDV IV ONE (13:44)
[2019-12-17] MEDS ORDERED: Metoprolol Tartrate 5 mg VIAL 5 ml VIAL (1 mg/ml) IV ONE (15:39)
[2019-12-17] MEDS ORDERED: Al Hydrox/Mg Hydrox/Simet LIQ 30 ML UDC PO PRN (15:52)
[2019-12-17] MEDS: Heparin 5000 UNITS/ML VIAL(*) 1 ml vial SUBCUT SCH (21:24)
[2019-12-18] MEDS: Heparin 5000 UNITS/ML VIAL(*) 1 ml vial SUBCUT SCH ×3 (05:19→21:04)
[2019-12-19] MEDS: Heparin 5000 UNITS/ML VIAL(*) 1 ml vial SUBCUT SCH ×2 (05:16→16:48)
[2019-12-19 15:57] VITALS: BP 128/76
== END 2019-12-19 19:32 | disposition home or self-care (01) ==
LOC: ED 12:03 → MEDTELE 12:03
PROVIDERS: ADMIT Internal Medicine; ATTEND Internal Medicine

== ENCOUNTER 2021-09-22 10:00 | Observation (INO) ==
[2021-09-22] MEDS ORDERED: Famotidine IV 10 MG/ML 2 ml VIAL (20 mg) IV ONE (12:30)
[2021-09-22] MEDS ORDERED: Lactated Ringers 500 ml BAG 500 ML IV ONE (12:33)
[2021-09-22 12:57] LABS: ABS Basophils 0.1 10^3/ul (0-0.2); ABS Eosinophils 0.1 10^3/ul (0-0.6); ABS Lymphocytes 1.8 10^3/ul (1.0-4.8); ABS Monocytes 0.8 10^3/ul (0-0.8); ABS Neutrophils 8.8 10^3/ul (1.5-7.7); Eosinophil % 1.1 %; Hematocrit 41 % (35-47); Hemoglobin 13.9 g/dL (12.0-16.0); Lymphocyte % 15.3 %; Mean Corpuscular HGB Conc 34 g/dL (31-36); Mean Corpuscular Hemoglobin 30 pg (27-31); Mean Corpuscular Volume 89 fL (80-97); Mean Platelet Volume 8.9 fL (7.4-10.4); Platelet Count 259 10^3/uL (150-450); Red Blood Count 4.67 10^6 /uL (3.70-4.87); Red Cell Distribution Width 14 % (10-15); White Blood Count 11.6 10^3/uL (3.5-10.8)
[2021-09-22 13:36] LABS: Albumin/Globulin Ratio 1.7 (1-3); Calcium 9.3 mg/dL (8.6-10.3); Globulin 2.4 g/dL (2-4); Potassium 3.9 mmol/L (3.5-5.0); Total Bilirubin 0.7 mg/dL (0.2-1.0); Total Protein 6.4 g/dL (6.4-8.9); eGFR CKD-EPI 100.3 (>60)
[2021-09-22] MEDS ORDERED: Iohexol 300 (CONTRAST) 10 ML SDV IV ONE (13:55)
[2021-09-22] MEDS ORDERED: Lactated Ringers 1000 ml BAG 1,000 ML IV ONE (17:11)
[2021-09-22] MEDS ORDERED: Morphine 2 MG/ML SYRINGE IV ONE (17:17)
[2021-09-22] MEDS ORDERED: Al Hydrox/Mg Hydrox/Simet LIQ 30 ML UDC PO ONE (18:07)
[2021-09-22] MEDS ORDERED: Ondansetron 4 mg VIAL 2 MG/ML 2 ml VIAL IV PRN (18:08)
[2021-09-22] MEDS ORDERED: NS 0.9% 1000 ml BAG 1,000 ML IV SCH (18:15)
[2021-09-22] MEDS ORDERED: Enoxaparin 40 MG/0.4 ML SYR SUBCUT SCH (20:00)
[2021-09-22] MEDS: Lactated Ringers 1000 ml BAG 1,000 ML IV SCH (21:33)
[2021-09-22 21:59] LABS: Urine Appearance Cloudy; Urine Bilirubin Negative (Negative); Urine Blood Negative (Negative); Urine Color Yellow; Urine Glucose Negative (Negative); Urine Ketones 1+ (Negative); Urine Nitrite Negative (Negative); Urine Protein Negative (Negative); Urine Urobilinogen Negative (Negative)
[2021-09-23] MEDS: Lactated Ringers 1000 ml BAG 1,000 ML IV SCH (04:43)
[2021-09-23 06:00] LABS: ABS Eosinophils 0.2 10^3/ul (0-0.6); ABS Lymphocytes 1.9 10^3/ul (1.0-4.8); ABS Monocytes 0.8 10^3/ul (0-0.8); ABS Neutrophils 6.5 10^3/ul (1.5-7.7); Eosinophil % 1.6 %; Hematocrit 37 % (35-47); Hemoglobin 12.5 g/dL (12.0-16.0); Lymphocyte % 20.2 %; Mean Corpuscular HGB Conc 34 g/dL (31-36); Mean Corpuscular Hemoglobin 30 pg (27-31); Mean Corpuscular Volume 88 fL (80-97); Mean Platelet Volume 9.1 fL (7.4-10.4); Nucleated Red Blood Cells % 0.1; Platelet Count 227 10^3/uL (150-450); Red Blood Count 4.17 10^6 /uL (3.70-4.87); Red Cell Distribution Width 14 % (10-15); White Blood Count 9.4 10^3/uL (3.5-10.8)
[2021-09-23 06:21] LABS: Albumin 3.4 g/dL (3.2-5.2); Albumin/Globulin Ratio 1.6 (1-3); Calcium 8.7 mg/dL (8.6-10.3); Direct Bilirubin 0.1 mg/dL (0.03-0.18); Globulin 2.1 g/dL (2-4); Indirect Bilirubin 0.6 mg/dL (0.3-1.0); Potassium 3.8 mmol/L (3.5-5.0); Total Bilirubin 0.7 mg/dL (0.2-1.0); Total Protein 5.5 g/dL (6.4-8.9)
[2021-09-23 16:25] VITALS: BP 142/79
== END 2021-09-23 18:00 | disposition home or self-care (01) ==
LOC: ED 10:00 → EDHOLD 10:00 → SSU 21:05
PROVIDERS: ADMIT Internal Medicine; ATTEND Internal Medicine